=== PATIENT | male | born 1940 | race Two or more races ===

== ENCOUNTER 2024-05-24 08:11 | Outpatient (CLI) | payer OTHER ==
[~2024-05-24 08:11] MED LIST: CIPRO500 MG PO; TRAMADOL HCL50 MG PO; TRIPLE ANTIBIOT15 GM TP
== END 2024-05-24 08:12 | disposition home or self-care (01) ==
LOC: NUCLEAR 08:11
PROVIDERS: ATTEND Internal Medicine Sports Medicine
DX: I49.9 Cardiac arrhythmia, unspecified (principal); R00.1 Bradycardia, unspecified; I44.30 Unspecified atrioventricular block

== ENCOUNTER 2024-05-25 09:02 | Outpatient (CLI) | payer OTHER | END 2024-05-25 09:03 | disposition home or self-care (01) | LOC: NUCLEAR 09:02 | PROVIDERS: ATTEND Internal Medicine Sports Medicine | DX: I49.9 Cardiac arrhythmia, unspecified (principal); R00.1 Bradycardia, unspecified; I44.30 Unspecified atrioventricular block ==